=== PATIENT | male | born 1965 | race Caucasian/White ===

== ENCOUNTER → 2021-03-22 04:34 | Outpatient (CLI) | payer SELFPAY ==
[2021-03-23 19:26] LABS: SARS-CoV-2 RNA PCR Negative
== END ==
PROVIDERS: Visit Provider Dentist
DX: Z01.812 Encounter for preprocedural laboratory examination (principal); Z20.822 Contact with and (suspected) exposure to COVID-19
CPT/HCPCS: C9803; U0003; U0005

== ENCOUNTER 2021-03-22 13:18 | Outpatient (CLI) | payer MEDICARE, SELFPAY ==
--- NOTE | 2021-03-22 13:30 | ECG_ITS ---
Measurements Intervals [place] Rate: 59 P: 69 FL: 120 QRS: -35 QRSD: 102 T: 32 QT: 425 QTc: 422 Interpretive Statements SINUS BRADYCARDIA LEFT AXIS DEVIATION INCOMPLETE RIGHT BUNDLE BRANCH BLOCK DELAYED PRECORDIAL R/S TRANSITION BASELINE ARTIFACT- I, II, III, AVR, AVL, AVF BORDERLINE ECG Electronically Signed On 03-22-2021 14:11:53 CDT by Valente Romero D.O.
== END 2021-03-22 13:19 | disposition home or self-care (01) ==
LOC: ANHSURGERY 13:30
PROVIDERS: Visit Provider Dentist
DX: E78.00 Pure hypercholesterolemia, unspecified (principal); I45.10 Unspecified right bundle-branch block
CPT/HCPCS: 93005

== ENCOUNTER 2021-03-24 00:27 | Day surgery (SDC) | payer SELFPAY ==
--- NOTE | 2021-03-23 10:57 | P.PNAN_ITS ---
Anes - Initial Pre Proc Eval Procedure: Operation Date: 03/24/21 09:30 Proposed Procedures p Extraction of Twenty Eight Teeth - Vicente Fong DMD Date/Time: 03/23/21 10:57 Surgeon: Vicente Fong DMD Pre Op Diagnosis: dental caries Patient Data Age: 56 Gender: M Height: 1.73 m Weight: Allergies Allergy/AdvReac Type Severity Reaction Status Date / Time No Known Allergies Allergy Verified 03/22/21 10:44 Home Medications Medication Instructions Recorded Confirmed Type atorvastatin 10 mg PO HS 03/22/21 03/24/21 History fluoxetine 40 mg PO DAILY 03/22/21 03/24/21 History Patient hx anesthesia problems: none Family hx anesthesia problems: none Results Review: All pre-operative results and documents have been reviewed as part of the pre-operative evaluation. [facility] Past Medical History Medical History (Updated 03/24/21 @ 07:15 by Vicente Fong DMD) Hyperlipidemia TBI (traumatic brain injury) Social History Social History Smoking packs per day: 1.5 Smoking cigarettes per day: 30.0 Years smoked: 30 Smoking pack-years: 45.00 Smoking status: Current every day smoker Tobacco type: cigarettes Drinks per week: 2 Living arrangements: alone Anes - Eval Final PreProcedure Day of Procedure 03/23/21 10:57 Patient weight: normal Heart: regular rate and rhythm Lungs: clear to auscultation and normal air movement Airway: Mallampati scale class II Neurological: alert and oriented Last oral intake: >/= 8 hours ASA classification: III Emergent: no Anesthetic plan: proceed Anesthesia type and monitoring: general ETT and standard monitoring Results Review: All pre-operative results and documents have been reviewed as part of the pre-operative evaluation. Informed Consent: The patient's anesthetic plan and its attendant risks and benefits were discussed with the patient/family/POA. Questions were solicited and answers provided to the satisfaction of the patient/family/POA.
--- NOTE | 2021-03-24 07:15 | WPDHPUPDATE1 ---
History and Physical Update Update Date/Time: 03/24/21 07:15 History and Physical has been reviewed, including an updated exam of the patient. There are NO changes in the patient's condition. Risks, benefits, and alternatives have been discussed and questions answered. Patient agrees to proceed with procedure.
--- NOTE | 2021-03-24 07:15 | PM.IMHP ---
H&P: HPI History of Present Illness Date/Time: 03/24/21 07:15 Chief Complaint: bad teeth PMFSH Past Medical History Medical History (Updated 03/24/21 @ 07:15 by Vicente Fong DMD) Hyperlipidemia TBI (traumatic brain injury) Social History Social History Smoking packs per day: 1.5 Smoking cigarettes per day: 30.0 Years smoked: 30 Smoking pack-years: 45.00 Smoking status: Current every day smoker Tobacco type: cigarettes Drinks per week: 2 Living arrangements: alone Meds Home Medications and Allergies Home Medications Medication Instructions Recorded Confirmed Type atorvastatin 10 mg PO HS 03/22/21 03/22/21 History fluoxetine 40 mg PO DAILY 03/22/21 03/22/21 History Allergies Allergy/AdvReac Type Severity Reaction Status Date / Time No Known Allergies Allergy Verified 03/22/21 10:44 Assessment and Plan Assessment and plan (1) Non-restorable tooth: Code(s): K08.89 - Other specified disorders of teeth and supporting structures Status: Acute Assessment and Plan: nonrestorable teeth. FMTE
[2021-03-24] MEDS: LACTATED RINGERS 1,000 ML 30 ML IV CONT (08:11)
[2021-03-24] MEDS: OXYMETAZOLINE HCL 0.05% NAS 15 ML BTL (*BKC) 4 SPRAY NASAL (09:35)
[2021-03-24] MEDS: LIDOCAINE 2%-EPI (FOR DENTAL BLOCK) 1.7 ML CARTRIDGE INFILTRATE (10:07)
--- NOTE | 2021-03-24 10:11 | P.OPB_ITS ---
Procedure Note - Brief Procedure Note - Brief Date of procedure: 03/24/21 Pre-op diagnosis: dental caries Surgeon: Vicente Fong DMD Preoperative diagnosis nonrestorable dentition. Postop diagnosis same procedure surgical removal of teeth numbers 2, 3, 4, 5, 6, 7, 8, 9, 10, 11, 12, 13, 14, 15, 18, 19, 2021, 22, 23, 24, 25, 26, 27, 28, 29, 30, 31. Complications none estimated blood loss 10cc anesthesia general anesthesia and 7.52cc of 2% lidocaine with 100,000 epinephrine. Description of the procedure. Patient was encountered the tube sizer operator [employer] the anesthesia service to induced a general anesthetic. Oral cavity was suctioned free of debris and throat pack was removed. Local anesthetic administered. A 15 blade was used to make an incision in the maxilla full-thickness flaps a little buckle. All remaining teeth removed the liver forceps technique without complication. Psych is cared for. Radiographic Jimmy semester of saline. Of Huelsman plasty was completed using rongeur and the wound was irrigated and closed using 4-0 chromic gut suture in continuous fashion. Attention was turned to the mandible where incision was made in a full-thickness flaps elevated the buckle. All remaining teeth removed using alligator forceps technique without complication. Second curetted free of debris and irrigated cups month sterile saline. Gingival tissue stranding then reapproximated using 4-0 chromic gut suture in interrupted and continuous fashion. Oral cavity was suctioned free of debris and throat pack was removed. Gauze packs placed in care of the patient was returned to the anesthesia Service who extubated the patient transferred to recovery in stable c ondition.
[2021-03-24 10:12] VITALS: BP 141/86; PULSE 86; RESP 15; TEMP 36.3; O2SAT 100
[2021-03-24 10:25] VITALS: BP 137/76; PULSE 64; RESP 18; O2SAT 95
[2021-03-24 10:40] VITALS: BP 129/77; PULSE 59; RESP 14; O2SAT 97
[2021-03-24 10:55] VITALS: BP 136/72; PULSE 58
[2021-03-24] MEDS: fentaNYL CITRATE INJ (*CRX) 100 MCG/2 ML VIAL 25 MCG IV PUSH (11:02)
[2021-03-24] MEDS: oxyCODONE HCL (*CRX) 5 MG TAB IR PO (11:20)
[2021-03-24 11:25] VITALS: BP 135/73; PULSE 60
--- NOTE | 2021-03-24 11:50 | SUR.PHASEII ---
Vitals are stable. Patient is just waiting for ride to arrive.
== END 2021-03-24 11:56 | disposition home or self-care (01) ==
PROVIDERS: PCP Physician Assistant; Visit Provider Dentist
PROC: (CPT 41899; principal; 2021-03-24 09:30)
DX: K02.9 Dental caries, unspecified (principal); K08.89 Other specified disorders of teeth and supporting structures; E78.5 Hyperlipidemia, unspecified; Z87.820 Personal history of traumatic brain injury; F17.210 Nicotine dependence, cigarettes, uncomplicated
CPT/HCPCS: D7240 ×28; A9270; J0330; J1100; J2405; J2704; J3010; J7120